=== PATIENT | male | born 1980 | race Caucasian/White ===

== ENCOUNTER 2021-09-19 12:21 | Emergency (ER) | payer OTHER ==
[~2021-09-19 12:21] MED LIST: IBU800 MG PO; TAMIFLU75 MG PO
[2021-09-19] MEDS ORDERED: CYCLOBENZAPRINE10 MG PO (15:16)
[2021-09-19] MEDS ORDERED: IBUPROFEN800 MG PO (15:16)
== END 2021-09-19 15:25 | disposition home or self-care (01) ==
LOC: ER1 12:21
DX: S39.012A Strain of muscle, fascia and tendon of lower back, initial encounter (principal); X58.XXXA Exposure to other specified factors, initial encounter
CPT/HCPCS: 72040; 72100; 73560; 99283